=== PATIENT | male | born 2000 | race Caucasian/White ===

== ENCOUNTER 2024-09-04 18:50 | Emergency (ER) | payer OTHER ==
[2024-09-04 19:00] VITALS: BP 128/71; PULSE 54; RESP 18; TEMP 98.6; BMI 22.4
[2024-09-04] MEDS ORDERED: IBUPROFEN 600 MG TABLET (FP) PO ONE (19:20)
[2024-09-04] MEDS: IBUPROFEN 600 MG TABLET (FP) PO ONE (19:24)
== END 2024-09-04 19:25 | disposition home or self-care (01) ==
LOC: FER 18:50
DX: R10.2 Pelvic and perineal pain (principal); M54.2 Cervicalgia; M54.9 Dorsalgia, unspecified; V43.12XA Car passenger injured in collision with other type car in nontraffic accident, initial encounter; Y92.410 Unspecified street and highway as the place of occurrence of the external cause
CPT/HCPCS: 99283-25